=== PATIENT | female | born 1945 | race Caucasian/White ===

== ENCOUNTER 2017-05-09 12:02 | Outpatient (CLI) | payer OTHER | END 2017-05-09 12:08 | disposition home or self-care (01) | LOC: NUCLEAR 12:02 | DX: M81.0 Age-related osteoporosis without current pathological fracture (principal) ==

== ENCOUNTER 2017-08-22 15:20 | Outpatient (CLI) | payer OTHER | END 2017-08-22 15:31 | disposition home or self-care (01) | LOC: RAD 15:20 | DX: M15.8 Other polyosteoarthritis (principal) ==

== ENCOUNTER 2017-09-22 16:15 | Outpatient (CLI) | payer OTHER | END 2017-09-22 16:16 | disposition home or self-care (01) | LOC: LAB 16:15 | DX: C73 Malignant neoplasm of thyroid gland (principal); E89.0 Postprocedural hypothyroidism; N73.0 Acute parametritis and pelvic cellulitis; I10 Essential (primary) hypertension ==

== ENCOUNTER 2017-10-07 11:07 | Outpatient (CLI) | payer OTHER | END 2017-10-07 11:08 | disposition home or self-care (01) | LOC: LAB 11:07 | DX: E55.9 Vitamin D deficiency, unspecified (principal); I10 Essential (primary) hypertension; E78.5 Hyperlipidemia, unspecified; Z12.11 Encounter for screening for malignant neoplasm of colon; E11.9 Type 2 diabetes mellitus without complications; D64.89 Other specified anemias; N39.0 Urinary tract infection, site not specified; E03.8 Other specified hypothyroidism; R82.8 Abnormal findings on cytological and histological examination of urine ==

== ENCOUNTER 2017-12-26 14:34 | Outpatient (CLI) | payer OTHER | END 2017-12-26 16:02 | disposition home or self-care (01) | LOC: RAD 14:34 | DX: M15.8 Other polyosteoarthritis (principal) ==

== ENCOUNTER 2017-12-29 13:03 | Outpatient (CLI) | payer OTHER | END 2017-12-29 14:12 | disposition home or self-care (01) | LOC: SONOGRAMA 13:03 | DX: R10.2 Pelvic and perineal pain (principal) ==

== ENCOUNTER 2018-01-21 07:43 | Outpatient (CLI) | payer OTHER | END 2018-01-21 14:04 | disposition home or self-care (01) | LOC: MRI 07:43 | DX: M15.8 Other polyosteoarthritis (principal) | CPT/HCPCS: 73721 ==

== ENCOUNTER 2018-02-11 14:01 | Outpatient (CLI) | payer OTHER | END 2018-02-11 14:03 | disposition home or self-care (01) | LOC: SONOGRAMA 14:01 | DX: M17.11 Unilateral primary osteoarthritis, right knee (principal); M71.21 Synovial cyst of popliteal space [Baker], right knee ==

== ENCOUNTER 2018-02-23 11:37 | Outpatient (CLI) | payer OTHER | END 2018-02-23 11:55 | disposition home or self-care (01) | LOC: LAB 11:37 | DX: C73 Malignant neoplasm of thyroid gland (principal); E89.0 Postprocedural hypothyroidism; R73.01 Impaired fasting glucose; I10 Essential (primary) hypertension ==

== ENCOUNTER 2018-04-13 10:32 | Outpatient (CLI) | payer OTHER | END 2018-04-13 11:23 | disposition home or self-care (01) | LOC: LAB 10:32 | DX: E55.9 Vitamin D deficiency, unspecified (principal); E78.49 Other hyperlipidemia; E11.9 Type 2 diabetes mellitus without complications; E03.8 Other specified hypothyroidism; N39.0 Urinary tract infection, site not specified; I10 Essential (primary) hypertension; Z12.11 Encounter for screening for malignant neoplasm of colon ==

== ENCOUNTER 2018-05-05 07:40 | Outpatient (CLI) | payer OTHER | END 2018-05-05 15:00 | disposition home or self-care (01) | LOC: LAB 07:40 | DX: E78.49 Other hyperlipidemia (principal); E03.8 Other specified hypothyroidism; E55.9 Vitamin D deficiency, unspecified; I11.9 Hypertensive heart disease without heart failure; N39.0 Urinary tract infection, site not specified; I10 Essential (primary) hypertension ==

== ENCOUNTER 2018-06-01 11:48 | Outpatient (CLI) | payer OTHER | END 2018-06-01 12:24 | disposition home or self-care (01) | LOC: RAD 11:48 | DX: M77.52 Other enthesopathy of left foot and ankle (principal) ==

== ENCOUNTER 2018-06-02 10:39 | Outpatient (CLI) | payer OTHER | END 2018-06-02 11:00 | disposition home or self-care (01) | LOC: RAD 10:39 → MRI 11:15 | DX: M67.49 Ganglion, multiple sites (principal); I51.7 Cardiomegaly ==

== ENCOUNTER 2018-08-06 09:20 | Outpatient (CLI) | payer OTHER | END 2018-08-06 09:30 | disposition home or self-care (01) | LOC: LAB 09:20 | DX: C73 Malignant neoplasm of thyroid gland (principal); E89.0 Postprocedural hypothyroidism; I10 Essential (primary) hypertension; C78.01 Secondary malignant neoplasm of right lung; E11.69 Type 2 diabetes mellitus with other specified complication ==

== ENCOUNTER → 2018-08-11 | Outpatient (CLI) | payer OTHER | END | disposition home or self-care (01) | LOC: MAMO-SONO 11:15 → SONOGRAMA 11:22 | DX: C73 Malignant neoplasm of thyroid gland (principal) ==

== ENCOUNTER → 2018-08-15 08:30 | Outpatient (CLI) | payer OTHER | END | disposition home or self-care (01) | LOC: LAB 08:30 | DX: M10.9 Gout, unspecified (principal) ==

== ENCOUNTER 2018-09-24 09:47 | Outpatient (CLI) | payer OTHER | END 2018-09-24 13:30 | disposition home or self-care (01) | LOC: LAB 09:47 | DX: R75 Inconclusive laboratory evidence of human immunodeficiency virus [HIV] (principal) ==

== ENCOUNTER 2018-09-28 10:23 | Outpatient (CLI) | payer OTHER | END 2018-09-28 10:27 | disposition home or self-care (01) | LOC: LAB 10:23 | DX: E78.49 Other hyperlipidemia (principal); E03.8 Other specified hypothyroidism ==

== ENCOUNTER 2019-05-13 14:05 | Outpatient (CLI) | payer OTHER | END 2019-05-13 14:31 | disposition home or self-care (01) | LOC: RAD 14:05 | DX: M54.5 Low back pain (principal) ==

== ENCOUNTER 2019-05-21 15:29 | Outpatient (CLI) | payer OTHER | END 2019-05-21 15:38 | disposition home or self-care (01) | LOC: RAD 15:29 | DX: M25.552 Pain in left hip (principal); M25.551 Pain in right hip ==

== ENCOUNTER 2019-09-13 10:14 | Outpatient (CLI) | payer OTHER | END 2019-09-13 10:26 | disposition home or self-care (01) | LOC: MAMO-SONO 10:14 → NUCLEAR 14:00 | PROVIDERS: ATTEND General Practice | DX: Z12.31 Encounter for screening mammogram for malignant neoplasm of breast (principal); M81.0 Age-related osteoporosis without current pathological fracture ==

== ENCOUNTER 2019-09-13 14:07 | Outpatient (CLI) | payer OTHER | END 2019-09-13 14:11 | disposition home or self-care (01) | LOC: NUCLEAR 14:07 | PROVIDERS: ATTEND General Practice | DX: M81.0 Age-related osteoporosis without current pathological fracture (principal); Z12.31 Encounter for screening mammogram for malignant neoplasm of breast ==

== ENCOUNTER 2020-04-25 11:38 | Outpatient (CLI) | payer OTHER | END 2020-04-25 11:45 | disposition home or self-care (01) | LOC: TOM 11:38 | PROVIDERS: ATTEND General Practice | DX: M50.33 Other cervical disc degeneration, cervicothoracic region (principal); D09.3 Carcinoma in situ of thyroid and other endocrine glands ==

== ENCOUNTER 2020-09-05 12:11 | Outpatient (CLI) | payer OTHER | END 2020-09-05 12:18 | disposition home or self-care (01) | LOC: RAD 12:11 | DX: M54.5 Low back pain (principal); M48.062 Spinal stenosis, lumbar region with neurogenic claudication; Z48.89 Encounter for other specified surgical aftercare ==

== ENCOUNTER 2020-11-13 16:06 | Outpatient (CLI) | payer OTHER | END 2020-11-13 16:07 | disposition home or self-care (01) | LOC: LAB 16:06 | PROVIDERS: ATTEND Radiology Diagnostic Radiology | DX: R22.1 Localized swelling, mass and lump, neck (principal) ==

== ENCOUNTER → 2020-11-21 09:55 | Outpatient (CLI) | payer OTHER | END | disposition home or self-care (01) | LOC: MRI 09:55 | PROVIDERS: ATTEND General Practice | DX: M54.2 Cervicalgia (principal) | CPT/HCPCS: 70543; A9575 ==

== ENCOUNTER 2021-02-01 10:04 | Outpatient (CLI) | payer OTHER | END 2021-02-01 10:15 | disposition home or self-care (01) | LOC: MAMO-SONO 10:04 | PROVIDERS: ATTEND General Practice | DX: N64.89 Other specified disorders of breast (principal); Z12.31 Encounter for screening mammogram for malignant neoplasm of breast ==

== ENCOUNTER 2021-03-20 15:28 | Outpatient (CLI) | payer OTHER | END 2021-03-20 15:36 | disposition home or self-care (01) | LOC: RAD 15:28 | PROVIDERS: ATTEND General Practice | DX: M54.59 Other low back pain (principal); Z98.1 Arthrodesis status ==

== ENCOUNTER 2021-04-30 12:10 | Outpatient (CLI) | payer OTHER | END 2021-04-30 12:17 | disposition home or self-care (01) | LOC: RAD 12:10 | PROVIDERS: ATTEND General Practice | DX: I10 Essential (primary) hypertension (principal) ==

== ENCOUNTER 2021-11-29 14:19 | Outpatient (CLI) | payer OTHER | END 2021-11-29 14:30 | disposition home or self-care (01) | LOC: RAD 14:19 | PROVIDERS: ATTEND Internal Medicine Rheumatology | DX: M15.8 Other polyosteoarthritis (principal); M77.8 Other enthesopathies, not elsewhere classified ==

== ENCOUNTER 2022-03-08 10:39 | Outpatient (CLI) | payer OTHER | END 2022-03-08 10:51 | disposition home or self-care (01) | LOC: RAD 10:39 | PROVIDERS: ATTEND General Practice | DX: M54.50 Low back pain, unspecified (principal) ==

== ENCOUNTER 2022-04-16 14:52 | Outpatient (CLI) | payer OTHER | END 2022-04-16 15:01 | disposition home or self-care (01) | LOC: RAD 14:52 | PROVIDERS: ATTEND Physical Medicine & Rehabilitation | DX: M54.2 Cervicalgia (principal); M80.00XA Age-related osteoporosis with current pathological fracture, unspecified site, initial encounter for fracture ==

== ENCOUNTER → 2022-05-23 | Outpatient (CLI) | payer OTHER | END | disposition home or self-care (01) | LOC: RAD 16:36 | PROVIDERS: ATTEND Internal Medicine Rheumatology | DX: M15.8 Other polyosteoarthritis (principal) ==

== ENCOUNTER → 2022-05-27 | Outpatient (CLI) | payer OTHER | END | disposition home or self-care (01) | LOC: NUCLEAR 14:54 | PROVIDERS: ATTEND General Practice | DX: M81.0 Age-related osteoporosis without current pathological fracture (principal) ==

== ENCOUNTER 2022-08-01 08:41 | Outpatient (CLI) | payer OTHER | END 2022-08-01 08:43 | disposition home or self-care (01) | LOC: NUCLEAR 08:41 | PROVIDERS: ATTEND Internal Medicine Rheumatology | DX: I70.213 Atherosclerosis of native arteries of extremities with intermittent claudication, bilateral legs (principal) ==

== ENCOUNTER 2022-08-01 10:44 | Outpatient (CLI) | payer OTHER | END 2022-08-01 11:06 | disposition home or self-care (01) | LOC: MAMO-SONO 10:44 | PROVIDERS: ATTEND General Practice | DX: Z12.31 Encounter for screening mammogram for malignant neoplasm of breast (principal); R92.0 Mammographic microcalcification found on diagnostic imaging of breast; Z92.89 Personal history of other medical treatment ==